=== PATIENT | female | born 1995 | race Hispanic/Latino ===

== ENCOUNTER 2017-08-16 20:11 | Emergency (ER) | payer OTHER ==
[2017-08-16 21:27] LABS: Absolute Lymphocytes (CBC) 2.8 K/uL (0.7-4.9); Absolute Monocytes 0.8 K/uL (0.1-1.3); Absolute Neutrophil 8.3 K/uL (1.8-8.0); Basophils % 0.5 % (0-1.3); Eosinophils % 0.4 % (0-4.4); Hematocrit 38.9 % (36.0-45.0); Lymphocytes % 23.2 % (15.3-44.8); MCH 27.3 pg (27.0-35.0); MCV 80.7 fL (80-100); MPV 7.4 fL (7.6-11.3); Monocytes % 6.5 % (3.3-12.3); RBC Red Blood Cell Count 4.82 M/uL (3.86-4.86)
[2017-08-16 21:33] LABS: Bicarbonate 27 mEq/L (21-31); Glomerular Filtration Rate > 60 mL/min (>60); Glucose Level 114 mg/dL (65-120); Potassium 3.6 mEq/L (3.6-5.0); Sodium Level 137 mEq/L (135-145)
[2017-08-16 21:34] LABS: BUN Blood Urea Nitrogen 10 mg/dL (6-20); Glomerular Filtration Rate > 90 mL/min (=/>90)
[2017-08-16 22:00] LABS: Urine Blood TRACE (NEG); Urine Glucose NEGATIVE (NEG); Urine Protein NEGATIVE (NEG)
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
[2017-08-16 23:32] VITALS: BP 119/84; TEMP 98.4; O2SAT 99
== END 2017-08-16 23:22 | disposition home or self-care (01) ==
LOC: ER 20:11
DX: S16.1XXA Strain of muscle, fascia and tendon at neck level, initial encounter (principal); R10.10 Upper abdominal pain, unspecified; V49.49XA Driver injured in collision with other motor vehicles in traffic accident, initial encounter; F32.9 Major depressive disorder, single episode, unspecified; F43.10 Post-traumatic stress disorder, unspecified; Z88.0 Allergy status to penicillin; Z88.1 Allergy status to other antibiotic agents; Z88.3 Allergy status to other anti-infective agents
CPT/HCPCS: 36415; 70450; 71260; 72125; 74177; 80048; 81003; 81025; 85025; 86850; 86900; 86901; 99284; Q9967

== ENCOUNTER 2018-12-11 01:47 | Emergency (ER) | payer OTHER ==
--- OUTSIDE RECORDS SUMMARY | 2018-12-11 01:50 | XMS REPORT ---
:1995 Author Organization eClinicalWorks Care Team Providers Name Role Phone Jesus [facility] Provider Role Unavailable Allergies, Adverse Reactions, Alerts Substance Reaction Event Type Amoxicillin Info Not Available Drug Allergy Problems Problem Type Condition Code Onset Dates Condition Status Problem Internal derangement of left knee M23.92 Active Problem Posterior left knee pain M25.562 Active Problem Migraine without aura and without G43.009 Active status migrainosus, not intractable Problem Allergic rhinitis J30.9 Active Problem Insomnia, unspecified type G47.00 Active Problem Gastro-esophageal reflux disease K21.9 Active without esophagitis Problem Irritable bowel syndrome with K58.0 Active diarrhea Problem Peptic ulcer disease K27.9 Active Problem Depression with anxiety F41.8 Active Assessment Allergic rhinitis J30.9 Active Assessment Migraine without aura and without G43.009 Active status migrainosus, not intractable Assessment Peptic ulcer disease K27.9 Active Assessment Gastro-esophageal reflux disease K21.9 Active without esophagitis Assessment Insomnia, unspecified type G47.00 Active Assessment Irritable bowel syndrome with K58.0 Active diarrhea Assessment Depression with anxiety F41.8 Active Medications Medication Code Code Instructions Start End Status Dosage System Date Date Trazodone HCl [facility] 13979697365 150 MG Orally Active 1 tablet Once a day at bedtime Duloxetine HCl [facility] 60895321852 30 MG Orally October 31, Active 1 capsule Twice a day 2018 Pristiq [facility] 97077351529 50 MG Orally Inactive 1 tablet Once a day Clonazepam [facility] 24641593059 0.5 MG Orally Inactive 1 tablet Once a day at bedtime Results No Known Results Summary Purpose eClinicalWorks Submission
--- OUTSIDE RECORDS SUMMARY | 2018-12-11 01:50 | XMS REPORT ---
:1995 Author Organization [employer] Care Team Providers Name Role Phone LeeAmando Provider Role Unavailable Allergies, Adverse Reactions, Alerts [...] Active Assessment Allergic rhinitis J30.9 Active Assessment Gastro-esophageal reflux disease K21.9 Active without esophagitis Assessment Peptic ulcer disease K27.9 Active Assessment Insomnia, unspecified type G47.00 Active Assessment Irritable bowel syndrome with K58.0 Active diarrhea Assessment Acute non-recurrent maxillary J01.00 Active sinusitis Assessment Migraine without aura and without G43.009 Active status migrainosus, not intractable Assessment Depression with anxiety F41.8 Active Medications Medication Code Code Instructions Start End Status Dosage System Date Date Trazodone HCl [facility] 41018547130 150 MG Orally Active 1 tablet Once a day at bedtime Duloxetine HCl ND 89794372139 30 MG Orally October 31, Active 1 capsule Twice a day 2018 Azithromycin ND 73063622588 250 MG Orally December 04November Active 2 tablets Once a day 2018 27, on the 2018 first day, then 1 tablet daily for 4 days Results Name Result Date Reference Range Unit Abnormality Flag STREP A RAPID ----Result Neg [id number] Summary Purpose eClinicalWorks Submission
--- OUTSIDE RECORDS SUMMARY | 2018-12-11 01:50 | XMS REPORT ---
:1995 Author Organization e[employer] Care Team Providers Name Role Phone Jesus Amando Provider Role Unavailable Allergies No Known Allergies Problems Problem Type Condition Code Onset Dates Condition Status Problem Internal derangement of left knee M23.92 Active Problem Posterior left knee pain M25.562 Active Assessment Visit for TB skin test Z11.1 Active Problem Migraine without aura and without G43.009 Active status migrainosus, not intractable Problem Allergic rhinitis J30.9 Active Problem Insomnia, unspecified type G47.00 Active Problem Gastro-esophageal reflux disease K21.9 Active without esophagitis Problem Irritable bowel syndrome with K58.0 Active diarrhea Problem Peptic ulcer disease K27.9 Active Problem Depression with anxiety F41.8 Active Medications Medication Code Code Instructions Start End Status Dosage System Date Date Duloxetine HCl [facility] 07187672974 30 MG Orally October 31, Active 1 capsule Twice a day 2018 Trazodone HCl [facility] 54375478095 150 MG Orally Active 1 tablet Once a day at bedtime Results No Known Results Immunizations Vaccine Administration Date Tb PPD intradermal, November 07, 2018 Summary Purpose eClinicalWorks Submission
--- OUTSIDE RECORDS SUMMARY | 2018-12-11 01:50 | XMS REPORT | Clinical Summary ---
:1995 Author Organization [facility] Address [address] [place] [id number] Care Team Providers Name Role Phone Amando Lee Primary Care Provider Allergies Active Allergy Reactions Severity Noted Date Comments Amoxicillin Hives, Shortness Of Breath High 01/27/2018 Cephalosporins Hives, Shortness Of Breath, High 01/04/2012 Itching, Rash Fentanyl Anaphylaxis, Shortness Of High 05/02/2018 Breath Hydrocodone-Acetaminophen Shortness Of Breath, High 03/14/2018 Palpitations Medications Medication Sig Dispensed Refills Start Date End Date Status clonazePAM (KLONOPIN) Take 0.5 mg 0 Active 0.5 MG tablet by mouth 2 (two) times daily as needed for Anxiety. desvenlafaxine Take 50 mg 0 Active succinate (PRISTIQ) by mouth 50 MG 24 hr tablet daily. traZODone (DESYREL) Take 100 mg 0 Active 100 MG tablet by mouth nightly. gabapentin Take 300 mg 0 05/02/2018 Discontinued (NEURONTIN) 300 MG by mouth as capsule needed. traMADol (ULTRAM) 50 Take 50 mg 0 05/02/2018 Discontinued mg tablet by mouth every 6 (six) hours as needed for Pain. carisoprodol (SOMA) Take 350 mg 0 05/02/2018 Discontinued 350 MG tablet by mouth 4 (four) times daily as needed for Muscle spasms. traZODone (DESYREL) Take 50 mg 0 05/02/2018 Discontinued 50 MG tablet by mouth nightly. Active Problems Problem Noted Date Left ACL tear 02/01/2018 Encounters Date Type Specialty Care Team Description 05/03/2018 Surgery Gastroenterology Tim Lee MD 05/03/2018 Anesthesia Event Gastroenterology Sanjeev Ballard MD 05/03/2018 Hospital Gastroenterology Tim Lee Encounter MD [place] 05/02/2018 Hospital Pre-Admission Testing Resource, Oqmt Encounter Preadmit Phone 04/13/2018 Surgery Tim Lee UPPER MD [place] ENDOSCOPY,BIOPSY 04/13/2018 Anesthesia Event Tram Claros MD 04/13/2018 Hospital Tim Lee Encounter MD [place] 03/14/2018 Hospital Pre-Admission Testing Resource, Oqmt Encounter Preadmit Phone 02/03/2018 Telephone Anesthesiology Adriana Acuña Follow-up SHAQUILLE Munoz 02/02/2018 Telephone Anesthesiology Gwen, Follow-up Leighann Baez RN 02/01/2018 Anesthesia Event Kain Rock MD 02/01/2018 Surgery Roshan Wong ARTHROSCOPY,KNEE ACL Jovanni Mariano MD W/ HAMSTRING AUTOGRAFT 02/01/2018 [facility] Roshan Wong S/P ACL Encounter Jovanni Mariano MD reconstruction (Primary Dx) 01/27/2018 Hospital Pre-Admission Testing Roshan Wong Encounter Jovanni Mariano MD after 12/10/2017 Social History Tobacco Use Types Packs/Day Years Used Date Never Smoker Smokeless Tobacco: Never Used Alcohol Use Drinks/Week oz/Week Comments No Alcohol Habits Answer Date Recorded How often do you have a drink containing alcohol? Never 05/02/2018 How many drinks containing alcohol do you have on a typical Not asked day when you are drinking? How often do you have six or more drinks on one occasion? Not asked Sex Assigned at Date Recorded Not on file Job Start Date Occupation Industry Not on file Not on file Not on file Travel History Travel Start Travel End No recent travel history available. Last Filed Vital Signs Vital Sign Reading Time Taken Blood Pressure 103/60 05/03/2018 12:55 PM LASER SPECIALIST Pulse 83 05/03/2018 12:55 PM LASER SPECIALIST Temperature 36.1 C (97 F) 05/03/2018 12:55 PM LASER SPECIALIST Respiratory Rate 18 05/03/2018 12:55 PM LASER SPECIALIST Oxygen Saturation 99% 05/03/2018 12:55 PM LASER SPECIALIST Inhaled Oxygen Concentration - - Weight 69.4 kg (152 lb 14.4 oz) 05/03/2018 10:09 AM LASER SPECIALIST Height 152.4 cm (5') 05/03/2018 10:09 AM LASER SPECIALIST Body Mass Index 29.86 05/03/2018 10:09 AM LASER SPECIALIST Plan of Treatment Not on file Implants Implanted Type Area Donor Services Coordinator Device Shelf Model / Identifier Expiration Serial / Date Lot Williams Acl R [id number] - [id number] [place]/Ar Left: ARTHREX 11/12/2021 [id number] / Implanted: Qty: 1 on 02/01/2018 by Roshan Wong Jr., MD throscopy Knee / [id number] Sut Fbrwire 2 38in Jose Wht [id number] - [id number] [place]/Ar Left: ARTHREX [id number] / Implanted: Qty: 2 on 02/01/2018 by Roshan Wong Jr., MD throscopy Knee / [id number] Biocryl Rapide Screw Left: MITEK [employer] 04/14/2020 [id number] / Implanted: Qty: 1 on 02/01/2018 by Roshan Wong Jr., MD [employer] / [id number] Procedures Procedure Name Priority Date/Time Associated Diagnosis Comments COLONOSCOPY 05/03/2018 12:30 PM Abnormal stools LASER SPECIALIST REPORT OF PROCEDURE - 05/03/2018 12:19 PM ENDOSCOPY URL LASER SPECIALIST UPPER ENDOSCOPY,BIOPSY 04/13/2018 9:30 AM Cyclical vomiting with LASER SPECIALIST nausea, intractability of vomiting not specified Special Needs (LINEAR SCOPE) REPORT OF 04/13/2018 9:24 AM PROCEDURE - LASER SPECIALIST ENDOSCOPY URL TISSUE EXAM AP Routine 04/13/2018 9:14 AM Results for this LASER SPECIALIST procedure are in the results section. POCT , Routine 04/13/2018 8:43 AM Results for this URINE LASER SPECIALIST procedure are in the results section. ARTHROSCOPY,KNEE 02/01/2018 11:40 AM New tear of ACL W/ HAMSTRING CDT anterior cruciate AUTOGRAFT ligament of left knee, subsequent encounter Special Needs (GENERAL W/PRE OP CONTINUOUS BLOCK W/INDWELLING CATHETER, LARGE SEMI T ALLOGRAFT, ARTHREX MEDIAL POSTAL TRANSFIX SYSTEM, ARTHREX LOW PROFILE REAMERS, ARTHREX FLAT HEAD LOW PROFILE METAL SCREW, MITEK BIOINTRAFIX SCREW AND SHEATH, TENDON STRIPPERS, RIG HT ANGLE HEMOSTAT, LARGE, LONG AND YOUNG SEMI T ALLOGRAFT IF NEEDED) ANESTHESIA PERIPHERAL Routine 02/01/2018 10:57 AM CDT Results for this BLOCK procedure are in the results section. POCT , URINE Routine 02/01/2018 7:59 AM CDT HEMOGLOBIN Routine 01/27/2018 1:40 PM CDT after 12/10/2017 Results REPORT OF PROCEDURE - ENDOSCOPY URL (05/03/2018 12:19 PM LASER SPECIALIST) Narrative Performed At REPORT OF PROCEDURE - ENDOSCOPY URL (04/13/2018 9:24 AM LASER SPECIALIST) Narrative Performed At Tissue Exam (04/13/2018 9:14 AM LASER SPECIALIST) Case Report Surgical Pathology Report Case: [id number] [facility] Authorizing Provider:Tim Lee MDCollected: 04/13/2018 0914 [facility] Ordering Location: [facility] ENDOSCOPY Received: 04/13/2018 1131 SERVICES Pathologist: Paige Chandra MD Specimen:Biopsy, Gastric, Random Bx r/o H pylori DIAGNOSIS GASTRIC, RANDOM BIOPSY: [facility] - GASTRIC BODY TYPE MUCOSA WITH NO SIGNIFICANT HISTOPATHOLOGICAL [facility] CHANGE - WARTHIN STARRY STAIN NEGATIVE FOR H. PYLORI-LIKE ORGANISMS Signing Pathologist Direct Phone Line: [phone] COMMENT Endoscopic report reviewed [facility] CPT Code(s) SJ/ew [facility] 20204 x1 [facility] 84757 x1 CLINICAL HISTORY Syncopal vomiting, rule out H. [facility] Pylori [facility] SPECIMEN SOURCE Random gastric biopsy [facility] GROSS DESCRIPTION The specimen is received in a [facility] formalin-filled container and [facility] labeled with the patient's information and labeled "random gastric biopsy" and consists of Three fragments of angela tissue ranging from 0.1 to 1 cm, submitted entirely A1. CG/pl MICROSCOPIC DESCRIPTION Performed [facility] SPECIAL STUDIES The interpretation of this case included the use of immunohistochemistry or special stains. [facility] Immunohistochemistry technical testing was performed at [facility], Pathology Laboratory where it was developed and its performance characteristics were determined. It has not be en cleared or approved by the U.S. Food and Drug Administration. The FDA has determined that such clearance or approval is not necessary. The test is used for clinical purposes. It should not be regarde d as investigational or for research. This laboratory is certified under the Clinical Laboratory Improvement Amendments of 1988 (CLIA-88) as qualified to perform high complexity clinical laboratory testing. Specimen Tissue Performing Organization Address City/State/Zipcode Phone Number [facility] [address] [place] [address] CENTER POCT , urine (04/13/2018 8:43 AM LASER SPECIALIST)Only the most recent of2 resultswithin the time period is included. Test Urine, POC Negative Control line present?, POC Yes Background clear?, POC Yes UPT Cassette Lot #, POC [id number] UPT Cassette Expiration Date, POC 09-13-2019 Specimen Urine ANESTHESIA PERIPHERAL BLOCK (02/01/2018 10:57 AM CDT) Narrative Performed At Lorne Arciniega MD 02/01/2018 10:57 AM Peripheral Block Patient location during procedure: pre-op Start time: 02/01/2018 10:29 AM End time: 02/01/2018 10:36 AM Reason for block: procedure for pain, at surgeon's request and post-op pain management Staffing Anesthesiologist: LORNE ARCINIEGA Performed by: anesthesiologist Preanesthetic Checklist Completed: patient identified, site marked, surgical consent, pre-op evaluation, timeout performed, IV checked, risks and benefits discussed and monitors and equipment checked Peripheral Block Patient position: supine Prep: ChloraPrep Patient monitoring: heart rate, bulk pallet builder and continuous pulse ox Block type: Adductor canal Laterality: left Injection technique: catheter Procedures: ultrasound guided Local infiltration: ropivicaine Infiltration strength: 0.5 % Dose: 20 mL Needle Needle type: pajunk. Needle gauge: 18 G Needle length: 100 mm Catheter type: open end Catheter size: 21g. Test dose: negative Assessment Injection assessment: negative aspiration for heme, no paresthesia on injection, incremental injection and local visualized surrounding nerve on ultrasound Paresthesia pain: none Heart rate change: no Slow fractionated injection: yes Additional Notes Patient tolerated well.No pain on injection or throughout procedure. Procedure Note Lorne Arciniega Jr., MD - 02/01/2018 10:55 AM CDT Peripheral Block Patient location during procedure: pre-op Start time: 02/01/2018 10:29 AM End time: 02/01/2018 10:36 AM Reason for block: procedure for pain, at surgeon's request and post-op pain management Staffing Anesthesiologist: LORNE ARCINIEGA Performed by: anesthesiologist Preanesthetic Checklist Completed: patient identified, site marked, surgical consent, pre-op evaluation , timeout performed, IV checked, risks and benefits discussed and monitors and equipment checked Peripheral Block Patient position: supine Prep: ChloraPrep Patient monitoring: heart rate, bulk pallet builder and continuous pulse ox Block type: Adductor canal Laterality: left Injection technique: catheter Procedures: ultrasound guided Local infiltration: ropivicaine Infiltration strength: 0.5 % Dose: 20 mL Needle Needle type: pajunk. Needle gauge: 18 G Needle length: 100 mm Catheter type: open end Catheter size: 21g. Test dose: negative Assessment Injection assessment: negative aspiration for heme, no paresthesia on injection , incremental injection and local visualized surrounding nerve on ultrasound Paresthesia pain: none Heart rate change: no Slow fractionated injection: yes Additional Notes Patient tolerated well. No pain on injection or throughout procedure. Hemoglobin (01/27/2018 1:40 PM CDT) Hemoglobin 13.0 11.2 - 15.7 GM/DL [facility] Specimen Blood Performing Organization Address City/State/Zipcode Phone Number [address] [address] CENTER after 12/10/2017 Insurance Payer Benefit Plan / Group Subscriber ID Type Phone Address ERICKSON HUGHES xxxxxxxxxxx Advance Directives Patient has advance care planning documents, and code status on file. For more information, please contact:[address] [phone] Code Status Date Activated Date Inactivated Comments Full Code 02/01/2018 7:45 AM 02/01/2018 7:20 PM This code status was determined by: Patient
--- OUTSIDE RECORDS SUMMARY | 2018-12-11 01:50 | XMS REPORT ---
:1995 Author Organization [facility] Address [address] [place] [address] Dr. Bustos [address] [place] [address] Care Team Providers Name Role Phone TIM LEE Unavailable Unavailable AJAY SEN Unavailable Unavailable Problems This patient has no known problems. Allergies, Adverse Reactions, Alerts This patient has no known allergies or adverse reactions. Medications This patient has no known medications. Results Test Description Test Time Test Comments Text Results Atomic Results Result Comments TISSUE EXAM 2018-04-14 14:05:00 Surgical Pathology Report Case: [id number] Authorizing Provider: Tim Lee MD Collected: 04/13/2018 0914 Ordering Location: [facility] ENDOSCOPY Received: 04/13/2018 1131 SERVICES Pathologist: Paige Chandra MD Specimen: Biopsy, Gastric, Random Bx r/o H pylori GASTRIC, RANDOM BIOPSY: - GASTRIC BODY TYPE MUCOSA WITH NO SIGNIFICANT HISTOPATHOLOGICAL CHANGE - WARTHIN STARRY STAIN NEGATIVE FOR H. PYLORI-LIKE ORGANISMS Signing Pathologist Direct Phone Line: [phone] signed by Paige Chandra MD on 04/14/2018 at 2:05 PMEndoscopic report [id number] vomiting, rule out H. Pylori Random gastric biopsyThe specimen is received in a formalin-filled container and labeled with the patient's information and labeled "random gastric biopsy" and consists of Three fragments of angela tissue ranging from 0.1 to 1 cm, submitted entirely A1. CG/pl Performed The interpretation of this case included the use of immunohistochemistry or special stains. Immunohistochemistry technical testing was performed at [facility], Pathology Laboratory where it was developed and its performance characteristics were determined. It has not been cleared or approved by the U.S. Food and Drug Administration. The FDA has determined that such clearance or approval is not necessary. The test is used for clinical purposes. It should not be regarded as investigational or for research. This laboratory is certified under the Clinical Laboratory Improvement Amendments of 1988 (CLIA-88) as qualified to perform high complexity clinical laboratory testing. HEMOGLOBIN 2018-01-27 14:04:00 Test Item Value Reference Range Comments HEMOGLOBIN (ANNAMARIE) (test dghq=531) 13.0 GM/DL 11.2-15.7
--- NOTE | 2018-12-11 02:52 | ER ---
Nurse's Notes [facility] Name: Lynn Rodney Age: 23 yrs Sex: Female : 1995 Arrival Date: 12/11/2018 Time: 01:54 Bed 14 Private MD: Amando Lee Diagnosis: Chest wall pain Presentation: 12/11 02:10 Presenting complaint: Patient states: I have veins on my left breast that are turning jb4 black and I am having tightness and discomfort in my left arm and neck. 02:10 Transition of care: patient was not received from another setting of care. Onset of jb4 symptoms was December 11, 2018. Risk Assessment: Do you want to hurt yourself or someone else? Patient reports no desire to harm self or others. Initial Sepsis Screen: Does the patient meet any 2 criteria? No. Patient's initial sepsis screen is negative. Does the patient have a suspected source of infection? No. Patient's initial sepsis screen is negative. Care prior to arrival: None. 02:10 Method Of Arrival: Wheelchair jb4 02:10 Acuity: WALTER 3 jb4 Historical: - Allergies: 02:10 Augmentin; jb4 02:10 Amoxicillin; jb4 02:10 CEPHALOSPORINS; jb4 02:10 anesthetics; jb4 02:10 contrast; jb4 02:10 Codeine; jb4 - Home Meds: 02:10 trazodone 50 mg Oral tab 1 tab 3 times per day [Active]; duloxetine oral oral [Active]; jb4 Promethazine Oral [Active]; - PMHx: 02:10 Anemia; Anxiety; Depression; gastritis; PCOS; PTSD; Stomach Ulcers; jb4 - PSHx: 02:10 Knee surgery; breast reduction; jb4 - Immunization history:: Adult Immunizations up to date. - Social history:: Smoking status: Patient/guardian denies using tobacco, Patient uses alcohol, occasionally. - Ebola Screening: : No symptoms or risks identified at this time. Screenin:10 Abuse screen: Denies threats or abuse. Nutritional screening: No deficits noted. jb4 Tuberculosis screening: No symptoms or risk factors identified. Fall Risk None identified. Assessment: 02:10 General: Appears in no apparent distress. uncomfortable, Behavior is calm, cooperative, jb4 appropriate for age. Pain: Complains of pain in chest Pain radiates to left arm and neck Pain currently is 6 out of 10 on a pain scale. Quality of pain is described as tightened sensation. Pain began 1 hour prior to arrival. Neuro: Level of Consciousness is awake, alert, obeys commands, Oriented to person, place, time, situation. Cardiovascular: Patient's skin is warm and dry. Respiratory: Airway is patent Respiratory effort is even, unlabored, Respiratory pattern is regular, symmetrical. GI: No signs and/or symptoms were reported involving the gastrointestinal system. : No signs and/or symptoms were reported regarding the genitourinary system. EENT: No signs and/or symptoms were reported regarding the EENT system. Derm: Skin is intact, Skin is pink, warm \T\ dry. Musculoskeletal: Circulation, motion, and sensation intact. Range of motion: intact in all extremities. 03:12 Reassessment: Patient appears in no apparent distress at this time. Patient and/or jb4 family updated on plan of care and expected duration. Pain level reassessed. Patient is alert, oriented x 3, equal unlabored respirations, skin warm/dry/pink. 03:29 Reassessment: Patient appears in no apparent distress at this time. Patient is alert, jb4 oriented x 3, equal unlabored respirations, skin warm/dry/pink. PT discharged home, ambulatory with steady gait, verbalized understanding of d/c and follow up instructions. Vital Signs: 02:10 BP 130 / 91; Pulse 83; Resp 16; Temp 98.4(O); Pulse Ox 100% on R/A; Weight 63.5 kg (R); jb4 Height 5 ft. 0 in. (152.40 cm) (R); Pain 6/10; 03:10 BP 110 / 83; Pulse 78; Resp 16; Pulse Ox 100% on R/A; jb4 02:10 Body Mass Index 27.34 (63.50 kg, 152.40 cm) jb4 ED Course: 01:54 Patient arrived in ED. es 01:56 Amando Lee DO is Private Physician. es 02:06 Calvin Jacobo MD is Attending Physician. tw4 02:10 Arm band placed on left wrist. jb4 02:10 Patient has correct armband on for positive identification. Placed in gown. Bed in low jb4 position. Call light in reach. Side rails up X 1. Pulse ox on. NIBP on. 02:14 Roshan Núñez, RN is Primary Nurse. jb4 02:32 Triage completed. jb4 02:43 Inserted saline lock: 20 gauge in right antecubital area, using aseptic technique. ar Blood collected. 02:51 Amando Lee DO is Referral Physician. tw4 03:28 No provider procedures requiring assistance completed. IV discontinued, intact, jb4 bleeding controlled, No redness/swelling at site. Pressure dressing applied. Administered Medications: No medications were administered Outcome: 02:52 Discharge ordered by . tw4 03:28 Discharged to home ambulatory. jb4 03:28 Condition: stable 03:28 Discharge instructions given to patient, Instructed on discharge instructions, follow up and referral plans. medication usage, Demonstrated understanding of instructions, follow-up care, medications, Prescriptions given X 1. 03:31 Patient left the ED. jb4 Signatures: Deanna Yeh James, RN RN jb4 Lakeshia Milligan mt, Terrence, MD MD tw4
--- NOTE | 2018-12-11 02:53 | EDPHYS ---
Physician Documentation [facility] Name: Lynn Rodney Age: 23 yrs Sex: Female : 1995 Arrival Date: 12/11/2018 Time: 01:54 Bed 14 Private MD: Clau Leeh ED Physician Calvin Jacobo HPI: 12/11 02:21 This 23 yrs old Female presents to ER via Unassigned with complaints of Vain tw4 in chest turning black,neck to lt arm hot ache. 02:21 pt states that her veins on her breast are " turning black". Onset: The tw4 symptoms/episode began/occurred today. Severity of symptoms: At their worst the symptoms were moderate. Historical: - Allergies: 02:10 Augmentin; jb4 02:10 Amoxicillin; jb4 02:10 CEPHALOSPORINS; jb4 02:10 anesthetics; jb4 02:10 contrast; jb4 02:10 Codeine; jb4 - Home Meds: 02:10 trazodone 50 mg Oral tab 1 tab 3 times per day [Active]; duloxetine oral oral [Active]; jb4 Promethazine Oral [Active]; - PMHx: 02:10 Anemia; Anxiety; Depression; gastritis; PCOS; PTSD; Stomach Ulcers; jb4 - PSHx: 02:10 Knee surgery; breast reduction; jb4 - Immunization history:: Adult Immunizations up to date. - Social history:: Smoking status: Patient/guardian denies using tobacco, Patient uses alcohol, occasionally. - Ebola Screening: : No symptoms or risks identified at this time. ROS: 02:21 Constitutional: Negative for fever, chills, and weight loss, Cardiovascular: Negative tw4 for chest pain, palpitations, and edema, Respiratory: Negative for shortness of breath, cough, wheezing, and pleuritic chest pain, Abdomen/GI: Negative for abdominal pain, nausea, vomiting, diarrhea, and constipation, Back: Negative for injury and pain, Skin: Negative for injury, rash, and discoloration, Neuro: Negative for headache, weakness, numbness, tingling, and seizure. 02:21 MS/extremity: Positive for pain. Exam: 02:21 Constitutional: This is a well developed, well nourished patient who is awake, alert, tw4 and in no acute distress. Head/Face: Normocephalic, atraumatic. Chest/axilla: Normal chest wall appearance and motion. Nontender with no deformity. No lesions are appreciated. Cardiovascular: Regular rate and rhythm with a normal S1 and S2. No gallops, murmurs, or rubs. Normal PMI, no JVD. No pulse deficits. Respiratory: Lungs have equal breath sounds bilaterally, clear to auscultation and percussion. No rales, rhonchi or wheezes noted. No increased work of breathing, no retractions or nasal flaring. Abdomen/GI: Soft, non-tender, with normal bowel sounds. No distension or tympany. No guarding or rebound. No evidence of tenderness throughout. Neuro: Awake and alert, GCS 15, oriented to person, place, time, and situation. Cranial nerves II-XII grossly intact. Motor strength 5/5 in all extremities. Sensory grossly intact. Cerebellar exam normal. Normal gait. 02:21 Musculoskeletal/extremity: Extremities: noted in the right fifth toe and Right fifth toenail: pain, swelling, tenderness. Vital Signs: 02:10 BP 130 / 91; Pulse 83; Resp 16; Temp 98.4(O); Pulse Ox 100% on R/A; Weight 63.5 kg (R); jb4 Height 5 ft. 0 in. (152.40 cm) (R); Pain 6/10; 03:10 BP 110 / 83; Pulse 78; Resp 16; Pulse Ox 100% on R/A; jb4 02:10 Body Mass Index 27.34 (63.50 kg, 152.40 cm) jb4 MDM: 02:06 Patient medically screened. tw4 04:53 Data reviewed: vital signs, nurses notes. Counseling: I had a detailed discussion with [facility] the patient and/or guardian regarding: lab results. Special discussion: I discussed with the patient/guardian in detail that at this point there is no indication for admission to the hospital. It is understood, however, that if the symptoms persist or worsen the patient needs to return immediately for re-evaluation. 12/11 02:32 Order name: CBC with Diff tw4 12/11 02:32 Order name: CMP 4 Administered Medications: No medications were administered Disposition: 12/11/18 02:52 Discharged to Home. Impression: Chest wall pain. - Condition is Stable. - Discharge Instructions: Chest Wall Pain. - Prescriptions for Ibuprofen 600 mg Oral Tablet - take 1 tablet by ORAL route every 6 hours As needed take with food; 30 tablet. - Medication Reconciliation Form, Thank You Letter, Antibiotic Education, Prescription Opioid Use form. - Follow up: Amando Lee DO; When: Upon discharge from the Emergency Department; Reason: If symptoms return, Recheck today's complaints, Continuance of care. - Problem is new. - Symptoms have improved. Signatures: Dispatcher [employer] EDMT Roshan Núñez RN RN jb4 Calvin Jacobo MD MD tw4 Corrections: (The following items were deleted from the chart) 03:31 02:52 12/11/2018 02:52 Discharged to Home. Impression: Chest wall pain. Condition is jb4 Stable. Forms are Medication Reconciliation Form, Thank You Letter, Antibiotic Education, Prescription Opioid Use. Follow up: Amando Lee; When: Upon discharge from the Emergency Department; Reason: If symptoms return, Recheck today's complaints, Continuance of care. Problem is new. Symptoms have improved. tw4
[2018-12-11 02:56] LABS: Basophils % 0.7 % (0-1.3); Hematocrit 39.3 % (36.0-45.0); Lymphocytes % 35.2 % (15.3-44.8); MPV 7.8 fL (7.6-11.3); RBC Red Blood Cell Count 4.79 M/uL (3.86-4.86)
[2018-12-11 03:12] LABS: ALT/SGPT 15 U/L (12-78); AST/SGOT 13 U/L (15-37); Albumin 4.1 g/dL (3.4-5.0); Alkaline Phosphatase 88 U/L (45-117); BUN Blood Urea Nitrogen 5 mg/dL (7-18); Bicarbonate 28 mmol/L (21-32); Bilirubin Total 0.2 mg/dL (0.2-1.0); Glucose Level 99 mg/dL (74-106); Protein, Total 7.9 g/dL (6.4-8.2); Sodium Level 137 mmol/L (136-145)
[2018-12-11 03:39] VITALS: TEMP 98.4; O2SAT 100
[2018-12-11 03:40] VITALS: BP 110/83
== END 2018-12-11 03:31 | disposition home or self-care (01) ==
LOC: ER 01:47
DX: R07.89 Other chest pain (principal); F41.9 Anxiety disorder, unspecified; F32.9 Major depressive disorder, single episode, unspecified; F43.10 Post-traumatic stress disorder, unspecified; Z88.1 Allergy status to other antibiotic agents; Z88.3 Allergy status to other anti-infective agents; Z88.5 Allergy status to narcotic agent; Z88.8 Allergy status to other drugs, medicaments and biological substances; Z91.041 Radiographic dye allergy status
CPT/HCPCS: 36415; 80053; 85025; 99284